=== PATIENT | female | born 1980 | race African-American/Black ===

== ENCOUNTER 2017-07-01 13:52 | Emergency (ER) | payer MEDICAID, OTHER ==
[~2017-07-01] VITALS: Ht 162.6 cm; Wt 117.9 kg
[~2017-07-01 13:52] MED LIST: IBUPROFEN600 MG ORAL; TRAMADOL HCL50 MG ORAL
[2017-07-01 13:55] VITALS: BP 129/83
[2017-07-01] MEDS ORDERED: NKM (13:58)
--- NOTE | 2017-07-01 14:24 | Emergency Room Report ---
History of Present Illness General Chief Complaint: Earache Source: Patient (Jailene Esparza) Present Illness HPI Patient is a 37-year-old female with no significant past medical who presents today with complaints of left ear pain that began 3 days ago. She states the pain has been worsening and is currently 10 severity. She's been using over-the -counter ear drops without relief. Patient states that she has an associated cough and runny nose. She denies any fever, chills or associated symptoms. (Jailene Esparza) Allergies: Coded Allergies: No Known Allergies (Unverified , 11/21/14) Patient History Last Menstrual Period: Current Now: No Reviewed Nursing Documentation: PMH: Agreed, PSxH: Agreed (Jailene Esparza) Nursing Documentation-PMH Past Medical History: No Stated History (Jailene Esparza) Review of Systems ENT: Reports: ear pain Respiratory: Reports: cough All Other Systems: negative except mentioned in HPI (Jailene Esparza) Physical Exam Vital Signs Date Time Temp Pulse Resp B/P (MAP) Pulse Ox O2 Delivery O2 Flow Rate FiO2 07/01/17 13:55 98.4 93 21 129/83 98 07/01/17 13:55 Room Air Sp02 EP Interpretation: reviewed, normal General Appearance: no apparent distress, alert, GCS 15, non-toxic Head: normocephalic, atraumatic Eyes: bilateral eye normal inspection, bilateral eye PERRL ENT: hearing grossly normal, normal pharynx, no angioedema, normal voice, other - erythema in left ear canal, TTP over the tragus and with tugging on the pinna, no TTP over the mastoid process Neck: full range of motion, supple/symm/no masses Respiratory: chest non-tender, lungs clear, normal breath sounds, speaking full sentences Cardiovascular #1: regular rate, rhythm, no edema Cardiovascular #2: 2+ carotid (R), 2+ carotid (L), 2+ radial (R), 2+ radial (L) , 2+ dorsalis pedis (R), 2+ dorsalis pedis (L) Gastrointestinal: normal bowel sounds, non tender, soft, non-distended, no guarding, no rebound Rectal: deferred Genitourinary: normal inspection, no CVA tenderness Musculoskeletal: back normal, gait/station normal, normal range of motion, non- tender, calf tenderness Neurologic: alert, oriented x3, responsive, motor strength/tone normal, sensory intact, speech normal Psychiatric: judgement/insight normal, memory normal, mood/affect normal, no suicidal/homicidal ideation Reflexes: 3+ bicep (R), 3+ bicep (L), 3+ tricep (R), 3+ tricep (L), 3+ knee (R) , 3+ knee (L) Skin: normal color, no rash, warm/dry, well hydrated Lymphatic: no adenopathy (Jailene Esparza P.A.) Medical Decision Making PA Attestation Supervising physician is Dr. Bernal (Jailene Esparza P.A.) Diagnostic Impression: Primary Impression: Otitis externa, left Qualified Codes: H60.312 - Diffuse otitis externa, left ear ER Course patient was found to have a left external ear infection. No evidence of mastoiditis on physical exam. Vitals are stable and patient is afebrile. Patient also found to have a viral URI, no need for antibiotics he this time. Lungs are clear to auscultation, no need for imaging either. Pt is discharged home with Bryson Brandon for cough and Ciprodex ear drops. Instructed to follow with PCP for reevaluation.understands and is agreeable to plan. (Jailene Esparza P.A.) Last Vital Signs Date Time Temp Pulse Resp B/P (MAP) Pulse Ox O2 Delivery O2 Flow Rate FiO2 07/01/17 13:55 98.4 93 21 129/83 98 Room Air Status: improved (Jailene Esparza P.A.) Last Vital Signs Date Time Temp Pulse Resp B/P (MAP) Pulse Ox O2 Delivery O2 Flow Rate FiO2 07/01/17 14:35 89 20 153/103 100 Room Air 07/01/17 13:55 98.4 (Mac Bernal M.D.) Disposition: HOME, SELF-CARE Condition: Stable Scripts Benzonatate (Tessalon Perle) 100 Mg Capsule 100 MG ORAL THREE TIMES A DAY, #20 PERLE Prov: Jailene Esparza P.A. 07/01/17 Ciprofloxacin Hcl/Dexameth (CIPRODEX OTIC SUSPENSION) 7.5 Ml Drops.susp 4 DROP BOTH EARS TWICE A DAY for 10 Days, #10 ML Prov: Jailene Esparza 07/01/17 Referrals: [facility],REFERRING (PCP) Jailene Esparza Jul 01, 2017 14:24 Mac Bernal M.D. Jul 02, 2017 03:38
[2017-07-01] MEDS ORDERED: TESSALON PERLE100 M2 ORAL (14:28)
[2017-07-01] MEDS ORDERED: CIPRODEX OTIC7.5 M1 BOTH EARS (14:28)
[2017-07-01 14:35] VITALS: BP 153/103
== END 2017-07-01 14:40 | disposition home or self-care (01) ==
LOC: EMR 14:16
DX: H60.92 Unspecified otitis externa, left ear (principal)
CPT/HCPCS: 99284

== ENCOUNTER 2019-02-19 23:12 | Emergency (ER) | payer MEDICAID ==
[~2019-02-19] VITALS: Ht 165.1 cm; Wt 120.2 kg
[~2019-02-19 23:12] MED LIST changes: +CIPRODEX OTIC7.5 M1 BOTH EARS; +NKM; +TESSALON PERLE100 M2 ORAL
[2019-02-19 23:30] VITALS: BP 123/77
--- NOTE | 2019-02-19 23:30 | NUR ---
ER Nurse Note: Pt came from home c/o sore throat and ear ache since 02/18. Pt stated she has difficulty swollowing and has not been eating much d/t pain. Pt has hx of strep and pt thinks "it is strep throat because it I had it before". WIll continue to [facility].
[2019-02-20] MEDS ORDERED: HYDROcodone/Acetamin 5/325 tab ORAL ONE
--- NOTE | 2019-02-20 00:12 | Emergency Room Report ---
History of Present Illness General Chief Complaint: Sore Throat Source: Patient Present Illness HPI This is a 38-year-old female with no past mental history present she presents with chief complaint of sore throat. Onset for last day. Pain is 10 out of 10. Mostly left side. She has a history of stroke before. No fever chills but no nausea no vomiting. No cough or congestion. Worse with swallowing. Better with rest. Allergies: Coded Allergies: No Known Allergies (Unverified , 11/21/14) Patient History Past Medical History: see triage record, old chart reviewed Past Surgical History: none Pertinent Family History: none Social History: Denies: smoking Last Menstrual Period: 02/12/19 Now: No : 3 Para: 3 Immunizations: other Reviewed Nursing Documentation: PMH: Agreed; PSxH: Agreed Nursing Documentation-PMH Past Medical History: No Stated History Review of Systems Eye: Denies: eye pain, blurred vision ENT: Reports: throat pain; Denies: ear pain, nose congestion, throat swelling Respiratory: Denies: cough, shortness of breath Cardiovascular: Denies: chest pain, palpitations Gastrointestinal: Denies: abdominal pain, diarrhea, nausea, vomiting Musculoskeletal: Denies: back pain, joint pain Skin: Denies: rash Neurological: Denies: headache, numbness Endocrine: Denies: increased thirst, increased urine Hematologic/Lymphatic: Denies: easy bruising All Other Systems: negative except mentioned in HPI Physical Exam Vital Signs Date Time Temp Pulse Resp B/P (MAP) Pulse Ox O2 Delivery O2 Flow Rate FiO2 02/19/19 23:13 99.0 95 18 97 Room Air 02/19/19 23:30 123/77 vitals unremarkable Sp02 EP Interpretation: reviewed, normal General Appearance: well appearing, no apparent distress, alert, obese Head: normocephalic, atraumatic Eyes: bilateral eye PERRL, bilateral eye EOMI ENT: hearing grossly normal, tonsillar swelling, pharyngeal erythema, tonsillar exudate - On left, other - No trismus Neck: full range of motion, supple, no meningismus Respiratory: chest non-tender, lungs clear, normal breath sounds Cardiovascular #1: regular rate, rhythm, no murmur Gastrointestinal: normal bowel sounds, non tender, no mass, no organomegaly, no bruit, non-distended Musculoskeletal: back normal, gait/station normal, normal range of motion Psychiatric: mood/affect normal Skin: warm/dry Medical Decision Making Diagnostic Impression: Primary Impression: Acute tonsillitis Qualified Codes: J03.90 - Acute tonsillitis, unspecified ER Course Patient presents with tonsillitis. Most likely strep area no evidence of peritonsillar abscess, retropharyngeal abscess or Vignesh angina. There is no trismus and she is holding her secretion. We'll discharge home with antibiotics. Last Vital Signs Date Time Temp Pulse Resp B/P (MAP) Pulse Ox O2 Delivery O2 Flow Rate FiO2 02/19/19 23:30 99.0 95 18 123/77 97 Room Air Status: improved Disposition: HOME, SELF-CARE Condition: Stable Scripts Ibuprofen* (MOTRIN*) 600 Mg Tablet 600 MG ORAL THREE TIMES A DAY, #30 TAB 0 Refills Prov: Kole Forrest MD 02/20/19 Amoxicillin/Potassium Clav 875-125* (AUGMENTIN 875-125 TABLET*) 1 Each Tablet 1 TAB ORAL TWICE A DAY, #14 TAB Prov: Kole Forrest MD 02/20/19 [facility]: [facility],REFERRING (PCP) Patient Instructions: Strep Throat Additional Instructions: Increase fluids. Salt water gargle. Follow-up with your doctor in 7 days. Return if worse. Kole Forrest MD February 20, 2019 00:12
[2019-02-20] MEDS ORDERED: Morphine Sulfate 2mg/ml Inj(IV/IM USE ONLY) IM ONE (00:15)
[2019-02-20] MEDS ORDERED: Dexamethasone 4mg/ml vial IM ONE (00:15)
[2019-02-20] MEDS ORDERED: Lidocaine 1% MPF 10mg/ml 5ml INJ ONE (00:15)
[2019-02-20] MEDS ORDERED: AUGMENTIN 875-1 EAC1 ORAL (00:16)
[2019-02-20] MEDS ORDERED: IBUPROFEN600 MG ORAL (00:16)
[2019-02-20 00:30] VITALS: BP 123/77
--- NOTE | 2019-02-20 00:30 | NUR ---
ER Nurse Note: All orders completed per ERMD orders. Pt seen, treated, medically cleared for discharge by ERMD. Discharge instructions and prescriptions given with repeat verbazliaion by pt. Instructed pt to follow up with primary care provider within one week. Pt a&ox4, VSS, no signs of distress. Pain meds given; tolerated well. ID band removed. Pt left with all belongings with steady gait via own transportation.
== END 2019-02-20 00:30 | disposition home or self-care (01) ==
LOC: EMR 23:34
DX: J03.90 Acute tonsillitis, unspecified (principal); Z87.442 Personal history of urinary calculi
CPT/HCPCS: 96372; 96374; 99284; J0696; J1100; J2270

== ENCOUNTER 2019-05-30 23:14 | Emergency (ER) | payer MEDICAID ==
[~2019-05-30] VITALS: Ht 165.1 cm; Wt 117.5 kg
[~2019-05-30 23:14] MED LIST changes: +AUGMENTIN 875-1 EAC1 ORAL
[2019-05-30 23:30] VITALS: BP 140/94
--- NOTE | 2019-05-30 23:30 | NUR ---
ED Nurse Note: pt walked in to ER C/O sore throat since this after noon. VSS. alert x4.
[2019-05-30] MEDS ORDERED: Dexamethasone 4mg/ml vial IM ONE (23:45)
[2019-05-30] MEDS ORDERED: HYDROcodone/Acetamin 5/325 tab ORAL ONE (23:45)
[2019-05-30] MEDS ORDERED: Augmentin 875mg Tab ORAL ONE (23:45)
[2019-05-31] MEDS ORDERED: Ketorolac 30mg Inj IM ONE
[2019-05-31] MEDS ORDERED: AUGMENTIN 875-1 EAC1 ORAL (00:11)
[2019-05-31] MEDS ORDERED: IBUPROFEN600 MG ORAL (00:11)
[2019-05-31 00:17] VITALS: BP 135/92
--- NOTE | 2019-05-31 00:17 | NUR ---
ER DISCHARGE NOTE: Patient is cleared to be discharged per ERMD, pt is aox4, on room air, with stable vital signs. pt was given dc and prescription instructions, pt was able to verbalize understanding, pt id band removed without complications. pt is able to ambulate with steady gait. pt took all belongings.
--- NOTE | 2019-05-31 03:51 | Emergency Room Report ---
History of Present Illness General Chief Complaint: Sore Throat Source: Patient Present Illness HPI 39-year-old female presents ED for evaluation. Complaining of sore throat x1 day. Throbbing, 10 out of 10, nonradiating. Has a fever. States it is difficult to swallow. States she has had a recent strep throat. Denies sick contacts or recent travel. Denies cough. No other aggravating relieving factors. Denies any other associated symptoms Allergies: Coded Allergies: No Known Allergies (Unverified , 11/21/14) Patient History Past Medical History: none Past Surgical History: none Pertinent Family History: none Social History: Denies: smoking, alcohol use, drug use Last Menstrual Period: May 24 2019 Now: No Immunizations: UTD Reviewed Nursing Documentation: PMH: Agreed; PSxH: Agreed Nursing Documentation-PMH Past Medical History: No Stated History Review of Systems All Other Systems: negative except mentioned in HPI Physical Exam Vital Signs Date Time Temp Pulse Resp B/P (MAP) Pulse Ox O2 Delivery O2 Flow Rate FiO2 05/30/19 23:21 102.2 101 18 144/94 (111) 98 Room Air Sp02 EP Interpretation: reviewed, normal General Appearance: no apparent distress, alert, GCS 15, non-toxic, obese Head: normocephalic Eyes: bilateral eye normal inspection, bilateral eye PERRL ENT: hearing grossly normal, no angioedema, normal voice, TMs + canals normal, uvula midline, tonsillar swelling, pharyngeal erythema, tonsillar exudate Neck: full range of motion, supple, no meningismus, supple/symm/no masses Respiratory: normal inspection Cardiovascular #1: normal inspection Gastrointestinal: normal inspection Rectal: deferred Genitourinary: no CVA tenderness Musculoskeletal: normal inspection Neurologic: alert, oriented x3, responsive, motor strength/tone normal, sensory intact, speech normal Psychiatric: normal inspection Skin: no rash Lymphatic: adenopathy Medical Decision Making Diagnostic Impression: Primary Impression: Tonsillitis ER Course Hospital Course 39 year-old female presents to ED complaining of sore throat + fever Differential diagnoses include: URI, pharyngitis, otitis media Clinical course Patient placed on stretcher. After initial history, physical exam reveals a female in mild distress. Bilateral TM unremarkable. There are enlarged tonsils with erythema and exudates. Noted lymphadenopathy. Clinical findings consistent with tonsillits Given decadron, Toradol, antibiotics here. Discussed findings with patient and family. Given enlarged tonsils and recent pharyngitis patient would benefit from ENT evaluation. I will provide outpatient referrals Diagnosis - tonsillitis Stable and discharged home with prescriptions for Motrin, augmentin. Instructed to followup with PMD. return to ED if symptoms recur or worsen Last Vital Signs Date Time Temp Pulse Resp B/P (MAP) Pulse Ox O2 Delivery O2 Flow Rate FiO2 05/31/19 00:17 101.9 89 18 135/92 98 Room Air Status: improved Disposition: HOME, SELF-CARE Condition: Stable Scripts Amoxicillin/Potassium Clav 875-125* (AUGMENTIN 875-125 TABLET*) 1 Each Tablet 1 TAB ORAL TWICE A DAY, #14 TAB Prov: Sebastian Vasquez MD 05/31/19 Ibuprofen* (MOTRIN*) 600 Mg Tablet 600 MG ORAL Q8H PRN for For Pain, #30 TAB 0 Refills Prov: Sebastian Vasquez MD 05/31/19 Referrals: Catie Martinez MD Patient Instructions: Tonsillitis Sebastian Vasquez MD May 31, 2019 03:51
== END 2019-05-31 00:20 | disposition home or self-care (01) ==
LOC: EMR 23:31
DX: J03.90 Acute tonsillitis, unspecified (principal)
CPT/HCPCS: 96372; 99283; J1100; J1885

== ENCOUNTER 2020-05-29 17:25 | Emergency (ER) | payer MEDICAID ==
[~2020-05-29] VITALS: Ht 162.6 cm; Wt 104.3 kg
[~2020-05-29 17:25] MED LIST changes: +ALBUTEROL SULF8.5 GM INH; +MUCINEX1200 MG PO; +PROMETHAZINE-C118 M1 ORAL; +ZITHROMAX250 MG ORAL
[2020-05-29 17:38] VITALS: BP 133/85
[2020-05-29 17:40] VITALS: BP 133/85
--- NOTE | 2020-05-29 17:42 | NUR ---
ED Nurse Note: Patient walked in to Er from home due to sore throat x 2 days. temp at triage is 100.1
--- NOTE | 2020-05-29 17:43 | Emergency Room Report ---
History of Present Illness General Chief Complaint: Sore Throat Source: Patient Present Illness HPI 40-year-old female with history of recurrent strep throat here with sore throat. Patient says "I have strep throat. I know it." Says that she has had strep throat infections many times in the past and has come to this emergency department. She says that over the past 2 days she has had a sore throat that has been increasingly more severe. She says that she is now having difficulty swallowing. No airway compromise. Does not know if she has any sick contacts or other household members who are infected with strep throat. 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 Patient History Last Menstrual Period: 05/17/20 Now: No Nursing Documentation-[facility] Past Medical History: No Stated History Hx Cardiac Problems: No Hx Hypertension: No Hx Pacemaker: No Hx Asthma: No Hx COPD: No Hx Diabetes: No Hx Cancer: No Hx Gastrointestinal Problems: No Hx Dialysis: No History Of Psychiatric Problem: No Hx Neurological Problems: No Hx Cerebrovascular Accident: No Hx Seizures: No Review of Systems All Other Systems: negative except mentioned in HPI Physical Exam Vital Signs Date Time Temp Pulse Resp B/P (MAP) Pulse Ox O2 Delivery O2 Flow Rate FiO2 05/29/20 17:38 100.0 112 17 133/85 (101) 98 Room Air Sp02 EP Interpretation: reviewed, normal General Appearance: no apparent distress, alert, GCS 15, non-toxic Head: normocephalic, atraumatic Eyes: bilateral eye normal inspection, bilateral eye PERRL ENT: hearing grossly normal, normal pharynx, no angioedema, normal voice, other - Diffuse tonsillar swelling bilaterally with tonsillar exudates bilaterally. Mild cervical lymphadenopathy Neck: full range of motion, supple/symm/no masses Respiratory: chest non-tender, lungs clear, normal breath sounds, speaking full sentences Cardiovascular #1: regular rate, rhythm, no edema Cardiovascular #2: 2+ carotid (R), 2+ carotid (L), 2+ radial (R), 2+ radial (L) , 2+ dorsalis pedis (R), 2+ dorsalis pedis (L) Gastrointestinal: normal bowel sounds, non tender, soft, non-distended, no guarding, no rebound Rectal: deferred Musculoskeletal: normal range of motion, calf tenderness, gait/station normal, non-tender Neurologic: alert, motor strength/tone normal, sensory intact, responsive, speech normal Psychiatric: judgement/insight normal, memory normal, mood/affect normal, no suicidal/homicidal ideation Medical Decision Making Diagnostic Impression: Primary Impression: Acute streptococcal pharyngitis Additional Impression: Tonsillitis ER Course 40-year-old female here with sore throat. Patient had tonsillar swelling with exudates. She had a cervical lymphadenopathy and an elevated temperature. She denied cough. Due to the high likelihood given the patient's high Centor criteria score she was empirically treated for strep throat. She said that the last time she was in the emergency department and received p.o. antibiotics she had good resolution of her strep throat. Her review of records show the patient was given a course of Augmentin last time she was here. She was given a prescription for Augmentin to take for 7 days as well as treatment here with Toradol and Decadron intramuscularly. Discharged in stable condition. Last Vital Signs Date Time Temp Pulse Resp B/P (MAP) Pulse Ox O2 Delivery O2 Flow Rate FiO2 05/29/20 17:38 100.0 112 17 133/85 (101) 98 Room Air Scripts Amoxicillin/Potassium Clav 875-125* (AUGMENTIN 875-125 TABLET*) 1 Each Tablet 1 TAB ORAL TWICE A DAY, #14 TAB Prov: Alexandre Cheema M.D. 05/29/20 Alexandre Cheema M.D. May 29, 2020 17:43
[2020-05-29] MEDS ORDERED: AUGMENTIN 875-1 EAC1 ORAL (17:54)
[2020-05-29] MEDS ORDERED: Ketorolac 30mg Inj IM ONE (18:00)
--- NOTE | 2020-05-29 18:13 | NUR ---
ED Nurse Note: Pt cleared by health care Provider for discharge. DC instructions/prescription was given and explained to pt and verbalized understanding of teachings. All medical deviecs such as ID band removed. Pt is AAO x4, ambulatory and left with all personal belongings.
== END 2020-05-29 18:10 | disposition home or self-care (01) ==
LOC: EMR 18:00
DX: J02.0 Streptococcal pharyngitis (principal); J03.90 Acute tonsillitis, unspecified
CPT/HCPCS: 96372; J1100; J1885; Z7502; 99283

== ENCOUNTER 2020-08-12 21:36 | Emergency (ER) | payer MEDICAID ==
[~2020-08-12] VITALS: Ht 165.1 cm; Wt 108.0 kg
[2020-08-12] MEDS ORDERED: HYDROCODON-ACE1 EA15 ORAL (22:06)
[2020-08-12] MEDS ORDERED: IBUPROFEN600 M1 ORAL (22:06)
[2020-08-12] MEDS ORDERED: PREDNISONE20 MG ORAL (22:06)
--- NOTE | 2020-08-12 22:07 | Emergency Room Report ---
History of Present Illness General Chief Complaint: Lower Extremity Injury Source: Patient Present Illness HPI This is a 40-year-old female with no significant past medical history. She presents with chief complaint of left lower extremity pain. Pain started in her lower back and radiates to her buttock and to the hip down to the back of her thigh to the knee area. Ongoing for last 2 to 3 days. No trauma. No incontinence of bowel or urine. Worse with laying flat. Better with sitting position. Pain is 9 out of 10. No fever or chills. Never had this problem before. Not on control pill. No swelling of her calf. 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 COVID-19 Screening: Negative COVID-19 COVID-19 Testing Source: 08/02/2020 Patient History Past Medical History: see triage record, old chart reviewed Past Surgical History: none Pertinent Family History: none Social History: Denies: smoking Last Menstrual Period: 08/04/2020 Now: No : 5 Para: 3 Immunizations: other Reviewed Nursing Documentation: PMH: Agreed; PSxH: Agreed Nursing Documentation-PMH Past Medical History: No Stated History Hx Cardiac Problems: No Hx Hypertension: No Hx Pacemaker: No Hx Asthma: No Hx COPD: No Hx Diabetes: No Hx Cancer: No Hx Gastrointestinal Problems: Yes - HERNIA REPAIR Hx Dialysis: No Hx Neurological Problems: No Hx Cerebrovascular Accident: No Hx Seizures: No Review of Systems Eye: Denies: eye pain, blurred vision ENT: Denies: ear pain, nose congestion, throat swelling Respiratory: Denies: cough, shortness of breath Cardiovascular: Denies: chest pain, palpitations Gastrointestinal: Denies: abdominal pain, diarrhea, nausea, vomiting Musculoskeletal: Reports: back pain; Denies: joint pain Skin: Denies: rash Neurological: Denies: headache, numbness Endocrine: Denies: increased thirst, increased urine Hematologic/Lymphatic: Denies: easy bruising All Other Systems: negative except mentioned in HPI Physical Exam Vital Signs Date Time Temp Pulse Resp B/P (MAP) Pulse Ox O2 Delivery O2 Flow Rate FiO2 08/12/20 21:37 98.2 85 18 139/89 (106) 97 Room Air Vitals unremarkable Sp02 EP Interpretation: reviewed, normal General Appearance: well appearing, no apparent distress, alert, obese Head: normocephalic, atraumatic Eyes: bilateral eye PERRL, bilateral eye EOMI ENT: hearing grossly normal, normal pharynx Neck: full range of motion, supple, no meningismus Respiratory: chest non-tender, lungs clear, normal breath sounds Cardiovascular #1: regular rate, rhythm, no murmur Gastrointestinal: normal bowel sounds, non tender, no mass, no organomegaly, no bruit, non-distended Musculoskeletal: back normal, normal range of motion, gait/station normal Psychiatric: mood/affect normal Medical Decision Making Diagnostic Impression: Primary Impression: Sciatica of left side ER Course Patient presents with pain consistent with sciatica. No evidence of DVT, trauma, cauda equina syndrome, spinal epidural abscess or neoplastic process. Will discharge home. Last Vital Signs Date Time Temp Pulse Resp B/P (MAP) Pulse Ox O2 Delivery O2 Flow Rate FiO2 08/12/20 21:37 98.2 85 18 139/89 (106) 97 Room Air Status: improved Disposition: HOME, SELF-CARE Condition: Stable Scripts Prednisone* (PREDNISONE*) 20 Mg Tablet 40 MG ORAL DAILY, #8 TAB Prov: Kole Forrest MD 08/12/20 Ibuprofen* (MOTRIN*) 600 Mg Tablet 600 MG ORAL Q6H PRN for For Pain, #30 TAB 0 Refills Prov: Kole Forrest MD 08/12/20 Hydrocodone/Acetaminophen 5-325* (HYDROCODONE/ACETAMINOPHEN 5-325*) 1 Each Tablet 1 TAB ORAL Q6H PRN for For Pain, #15 TAB 0 Refills Prov: Kole Forrest MD 08/12/20 [facility]: [facility],REFERRING (PCP) Additional Instructions: Follow-up with your doctor in 7 days. No heavy lifting. If symptoms continue, you may need an MRI. Return if symptoms worsen. Kole Forrest MD Aug 12, 2020 22:06
[2020-08-12 22:12] VITALS: BP 127/83
[2020-08-12] MEDS ORDERED: HYDROcodone/Acetamin 5/325 tab ORAL ONE (22:15)
== END 2020-08-12 22:12 | disposition home or self-care (01) ==
LOC: EMR 22:00
DX: M54.32 Sciatica, left side (principal); E66.9 Obesity, unspecified; Z68.39 Body mass index [BMI] 39.0-39.9, adult
CPT/HCPCS: J7512; Z7502; 99282

== ENCOUNTER 2020-09-22 13:50 | Emergency (ER) | payer MEDICAID ==
[~2020-09-22] VITALS: Ht 165.1 cm; Wt 108.4 kg
[~2020-09-22 13:50] MED LIST changes: +HYDROCODON-ACE1 EA15 ORAL; +IBUPROFEN600 M1 ORAL; +PREDNISONE20 MG ORAL
[2020-09-22 14:03] VITALS: BP 110/66
--- NOTE | 2020-09-22 14:05 | NUR ---
ED Nurse Note: Patient walked in due to sore throat since Monday. pt aao x4 and ambulatory. no cardiac or pulmonary distress noted at this time. no cough or SOB.
--- NOTE | 2020-09-22 14:21 | Emergency Room Report ---
History of Present Illness General Chief Complaint: Sore Throat Source: Patient Present Illness HPI 40-year-old female with history of recurrences of strep pharyngitis and otitis externa here complaining of left-sided throat pain, tonsillar swelling, and ear pain. Patient reports that she had a pending ENT referral which was canceled due to Covid pandemic. Denies fever and chills, cough and congestion, loss of taste and smell, diarrhea. Has not taken medication for symptom relief. Appears to be stable with stable vital signs. Denies . Allergies: Coded Allergies: No Known Allergies (Unverified , 11/21/14) COVID-19 Screening Contact w/high risk pt: No Experienced COVID-19 symptoms?: No COVID-19 Testing performed PSYCHIATRY INSTRUCTOR: No Patient History Past Medical History: see triage record Past Surgical History: none Pertinent Family History: none Last Menstrual Period: 09/19/20 Now: No Immunizations: UTD Reviewed Nursing Documentation: PMH: Agreed; PSxH: Agreed Nursing Documentation-PMH Past Medical History: No Stated History Hx Cardiac Problems: No Hx Hypertension: No Hx Pacemaker: No Hx Asthma: No Hx COPD: No Hx Diabetes: No Hx Cancer: No Hx Gastrointestinal Problems: Yes - HERNIA REPAIR Hx Dialysis: No Hx Neurological Problems: No Hx Cerebrovascular Accident: No Hx Seizures: No Review of Systems All Other Systems: negative except mentioned in HPI Physical Exam Vital Signs Date Time Temp Pulse Resp B/P (MAP) Pulse Ox O2 Delivery O2 Flow Rate FiO2 09/22/20 13:54 99.0 102 16 110/66 (81) 100 Room Air Sp02 EP Interpretation: reviewed, normal General Appearance: well appearing Head: normocephalic, atraumatic Eyes: bilateral eye normal inspection, bilateral eye PERRL ENT: tonsillar swelling, pharyngeal erythema, tonsillar exudate Neck: full range of motion, supple/symm/no masses Respiratory: no respiratory distress, no retraction, no accessory muscle use Cardiovascular #1: regular rate, rhythm, no edema Gastrointestinal: non tender, soft Genitourinary: no CVA tenderness Musculoskeletal: back normal Neurologic: alert, motor strength/tone normal, oriented x3, sensory intact, responsive, speech normal Psychiatric: judgement/insight normal, memory normal, mood/affect normal, no suicidal/homicidal ideation Skin: no rash Lymphatic: normal inspection Medical Decision Making PA Attestation ALL Diagnosis and treatment plan reviewed and discussed with my supervising physician Dr. Cheema Diagnostic Impression: Primary Impression: Tonsillitis with exudate Additional Impression: Otitis externa ER Course 40-year-old female with history of recurrences of strep pharyngitis and otitis externa here complaining of left-sided throat pain, tonsillar swelling, and ear pain. Patient reports that she had a pending ENT referral which was canceled due to Covid pandemic. Denies fever and chills, cough and congestion, loss of taste and smell, diarrhea. Has not taken medication for symptom relief. Appears to be stable with stable vital signs. Denies . Ddx considered but are not limited to: strep pharyngitis, URI, tonsillitis, peritonsillar abscess, influneza Vital signs: are WNL, pt. is afebrile H&PE are most consistent with: Tonsillitis with exudate, otitis externa ORDERS: Augmentin, ibuprofen, lidocaine viscous, prednisone, ofloxacin otic ED INTERVENTIONS: Dexamethasone IM DISCHARGE: At this time pt. is stable for d/c to home. Will provide printed patient care instructions, and any necessary prescriptions. Care plan and follow up instructions have been discussed with the patient prior to discharge. Take medication as directed, follow-up with your primary care provider, if worsening symptoms return to the emergency room Last Vital Signs Date Time Temp Pulse Resp B/P (MAP) Pulse Ox O2 Delivery O2 Flow Rate FiO2 09/22/20 14:03 99.0 16 110/66 100 Room Air 09/22/20 13:54 102 Disposition: HOME, SELF-CARE Condition: Stable Patient Instructions: Otitis Externa, [id number], Tonsillitis Additional Instructions: Take medication as directed, follow-up with your primary care provider, if worsening symptoms return to the emergency room Kallie Avilez Sep 22, 2020 14:21
[2020-09-22] MEDS ORDERED: AUGMENTIN 875-1 EAC1 ORAL (14:22)
[2020-09-22] MEDS ORDERED: LIDOCAINE VISC100 ML ORAL (14:22)
[2020-09-22] MEDS ORDERED: PREDNISONE20 MG ORAL (14:22)
[2020-09-22] MEDS ORDERED: OFLOXACIN5 ML OT (14:22)
[2020-09-22] MEDS ORDERED: IBU800 MG PO (14:22)
== END 2020-09-22 14:30 | disposition home or self-care (01) ==
LOC: EMR 14:23
DX: J03.90 Acute tonsillitis, unspecified (principal); H60.90 Unspecified otitis externa, unspecified ear
CPT/HCPCS: 96372; J1100; Z7502; 99283